=== PATIENT | female | born 1945 | race Caucasian/White ===

== ENCOUNTER → 2016-11-24 | Outpatient (CLI) | payer OTHER ==
[~2016-11-24] MED LIST: ASPIRIN81 M1 PO; CALCIUM + D 6001 TA1 PO; CEFUROXIME250 MG PO; FISH OIL 1,0001 CAP PO; GLUCOSAMINE CH1 EACH PO
--- NOTE | ~2016-11-24 | BD1 ---
[facility] A Service of [facility] & [facility] RADIOLOGY TEXT RESULTS PATIENT: BRYCE REY LOCATION: [facility] : 43 UNIT #: [id number] AGE: [address]: JACKELINE CHAND APRN SEX: F ORDER DR: [id number] [facility] [address] [place], [place] [address] [id number] O MR#: [id number] Acc #: [id number] NAME: BRYCE REY : 1945 SEX: F STUDY DATE/TIME: 11/24/2016 11:59 UNIT: [facility] ROOM: STUDY DESCRIPTION: BD Dexa Bone Dens 1+ Site Attending Physician: Jackeline Leon M.D. Ordering Physician: Physician Non-Staff Primary Care Physician: Jackeline Leon M.D. MEDICAL IMAGING REPORT This report is preliminary unless electronic signature is present EXAM DXA scan, 11/24/2016 HISTORY Status post menopause with no hormone replacement. Osteopenia. Family history of breast carcinoma. Arthritis. FINDINGS Bone mineral density in the lumbar spine from L1-L4 was 0.658 g/cm2 which is 3.5 standard deviations below the mean when compared to the young adult reference population which is characteristic of osteoporosis. This is 1.3 standard deviations below the mean when compared to the age-matched population. Compared with 05/12/2014, there has been a decrease in bone mineral density in the lumbar spine of 1%. Bone mineral density in the left femoral neck was 0.578 g/cm2 which is 2.4 standard deviations below the mean when compared to the young adult reference population which is characteristic of osteopenia. This is 0.5 standard deviations below the mean when compared to the age-matched population. Compared with 05/12/2014 there has been a decrease in bone mineral density in the left hip of 3.3%. IMPRESSION Bone mineral density in the lumbar spine characteristic of osteoporosis and within the left hip characteristic of osteopenia. Compared with 05/12/2014 there has been a decrease in bone mineral density in the lumbar spine and the left hip. Dictated by... Sonido Toledo M.D. [facility] A Service of [facility] & [facility] RADIOLOGY TEXT RESULTS PATIENT: BRYCE REY LOCATION: [facility] : 43 UNIT #: [id number] AGE: [address]: JACKELINE CHAND COLLECTION SUPPORT SPECIALIST SEX: F ORDER DR: THIS IS AN ELECTRONICALLY VERIFIED REPORT Sonido Toledo M.D. at 11/24/2016 5:11 PM JIMI/bar TD: 11/24/2016 15:30 JOB #: [id number] MEDICAL IMAGING REPORT Page 1 of 1 COPY
== END | disposition home or self-care (01) ==
LOC: CWCC 11:44
DX: Z78.0 Asymptomatic menopausal state (principal); M81.0 Age-related osteoporosis without current pathological fracture; M85.88 Other specified disorders of bone density and structure, other site
CPT/HCPCS: 77080